=== PATIENT | female | born 1955 | race Caucasian/White ===

== ENCOUNTER 2022-08-24 09:36 | Day surgery (SDC) | payer MEDICARE ==
[2022-08-24] MEDS ORDERED: SOLU-MEDROL 125MG VIAL IVP SCH (11:00)
[2022-08-24] MEDS ORDERED: DiphenhydrAMINE HCL 50 MG/ML VIAL IVP SCH (11:00)
[2022-08-24] MEDS ORDERED: 0.9%NACL 1000ML 1,000 ML IV SCH (11:00)
[2022-08-24] MEDS ORDERED: 0.9%NACL 1000ML 1,000 ML IV ONE (11:57)
[2022-08-24] MEDS ORDERED: SOLU-MEDROL 125MG VIAL ONE (14:42)
[2022-08-24] MEDS ORDERED: DiphenhydrAMINE HCL 50 MG/ML VIAL ONE (14:42)
[2022-08-24] MEDS ORDERED: IOHEXOL 350 MG/ML 100ML INFUS..BTL IV ONE (14:57)
== END 2022-08-24 17:50 | disposition home or self-care (01) ==
LOC: RAH 09:36 → EDSTATUS 10:00 → RAH 17:50
PROVIDERS: ATTEND Internal Medicine Cardiovascular Disease
DX: I51.7 Cardiomegaly (principal); I71.40 Abdominal aortic aneurysm, without rupture, unspecified; K76.89 Other specified diseases of liver; N28.1 Cyst of kidney, acquired; I86.8 Varicose veins of other specified sites; N32.89 Other specified disorders of bladder; M47.815 Spondylosis without myelopathy or radiculopathy, thoracolumbar region; Z90.49 Acquired absence of other specified parts of digestive tract
CPT/HCPCS: 96374; 96361; 96375; 74174; 71275; A4223 ×3; J1200; J7030; J2930; Q9967; A4215; A4222; A4221; A4663; A4216; A4606; 96360

== ENCOUNTER → 2023-06-15 | Outpatient (CLI) | payer MEDICARE | END | disposition home or self-care (01) | LOC: SHCH 12:40 | PROVIDERS: ATTEND Internal Medicine Cardiovascular Disease | DX: I87.2 Venous insufficiency (chronic) (peripheral) (principal) | CPT/HCPCS: 93970 ==

== ENCOUNTER → 2025-05-02 | Outpatient (CLI) | payer MEDICARE ==
[~2025-05-02] MED LIST: ACET-2079 PO; ASCO10004 PO; BUPR-113 PO; CALC-862 PO; CIME400T PO; CLIN-141 PO; CYAN500T3 PO; FOLI0.4T6 PO; FURO20TA4 PO; LEVO75CA6 PO; MONT-39 PO; PANT40TA54 PO; POTA-193 PO; PRUC2TAB PO; RIVA10TA PO; ROPI1TAB46 PO; ROPI2TAB53 PO; RUXO5TAB PO; TRIA1CAP88 PO
--- NOTE | 2025-05-02 10:32 | HMCIMG ---
STUDY: Gastric Emptying Scintigraphy (Solid Meal, Tc-99m sulfur colloid) HISTORY: Evaluation for suspected gastroparesis. Prior history of delayed gastric emptying. TECHNIQUE: Following ingestion of a standardized solid meal radiolabeled with Tc-99m sulfur colloid, dynamic anterior planar imaging of the stomach was performed for approximately 90 minutes. Background and decay correction were applied. Timeactivity curves were generated to assess gastric clearance kinetics. COMPARISON: Prior gastric emptying study performed approximately 15 years earlier (reported delayed emptying). FINDINGS: The stomach demonstrates persistent radiotracer activity throughout the duration of the study, with minimal progressive clearance over time. Sequential dynamic images show sustained retention of tracer within the gastric body and antrum, without timely transit into the proximal small bowel. The emptying curve remains largely flat, without the expected exponential decline. Calculated percent emptying is negligible, with an effective emptying time extending to approximately 89 minutes and no meaningful achievement of half-emptying within the standard observation window. No rapid early emptying phase is observed. IMPRESSION: * Markedly delayed gastric emptying, characterized by significant gastric retention of solid meal tracer throughout the 90-minute acquisition, consistent with gastroparesis. * Absence of normal progressive clearance or identifiable gastric half-emptying within the expected timeframe, indicating severe impairment of gastric motility. * Overall pattern represents delayed gastric emptying rather than functional or rapid transit, in keeping with the clinical concern for gastroparesis. /[place]
== END | disposition home or self-care (01) ==
LOC: RAH 07:12
PROVIDERS: ATTEND Internal Medicine Gastroenterology
DX: K31.84 Gastroparesis (principal); K31.89 Other diseases of stomach and duodenum
CPT/HCPCS: 78264; A9541